=== PATIENT | male | born 1980 | race American Indian/Alaskan Native ===

== ENCOUNTER 2020-07-28 08:38 | Emergency (ER) | payer BC ==
[2020-07-28 08:43] VITALS: BP 164/91
--- NOTE | 2020-07-28 09:38 | Emergency Department Report ---
ED ENT HPI - General Chief complaint: Sore Throat Stated complaint: SORE THROAT, WEAKNESS Time Seen by Provider: 07/28/20 09:31 Source: patient Mode of arrival: Ambulatory Limitations: No Limitations - History of Present Illness Initial comments: 39-year-old -[place] male presents to the emergency room complaining of sore throat weakness and constipation since yesterday. Patient reports he has a decrease in appetite. Denies any fever chills no nausea no vomiting no abdominal pain no diarrhea. Last bowel movement was yesterday but felt like he did not evacuate completely. Patient reports he is taken [id number] Advil 400 mg and Goody powder yesterday. Patient reports he has a past medical history of hypertension and takes amlodipine and chlorthalidone. MD complaint: sore throat Onset/Timin -: days(s) Location: throat Severity: severe Severity scale (0 -10): 8 Quality: burning, stabbing, sharp Consistency: constant Improves with: none Worsens with: swallowing Associated Symptoms: pain with swallowing, sore throat - Related Data Previous Rx's Medication Instructions Recorded Last Taken Type Amoxicillin/K Clav Tab [Augmentin 1 tab PO Q12HR 7 Days #14 tab 07/28/20 Unknown Rx 875 mg] Allergies Allergy/AdvReac Type Severity Reaction Status Date / Time No Known Allergies Allergy Unverified 07/28/20 08:39 ED Dental HPI - General Chief complaint: Sore Throat Stated complaint: SORE THROAT, WEAKNESS Time Seen by Provider: 07/28/20 09:31 Source: patient Mode of arrival: Ambulatory Limitations: No Limitations - Related Data Previous Rx's Medication Instructions Recorded Last Taken Type Amoxicillin/K Clav Tab [Augmentin 1 tab PO Q12HR 7 Days #14 tab 07/28/20 Unknown Rx 875 mg] Allergies Allergy/AdvReac Type Severity Reaction Status Date / Time No Known Allergies Allergy Unverified 07/28/20 08:39 ED Review of Systems ROS: Stated complaint: SORE THROAT, WEAKNESS Other details as noted in HPI Comment: All other systems reviewed and negative ED Past Medical Hx - Past Medical History Hx Hypertension: Yes - Surgical History Past Surgical History?: No - Social History Smoking Status: Current Every Day Smoker - Medications Home Medications: Home Medications Medication Instructions Recorded Confirmed Last Taken Type Amoxicillin/K Clav Tab [Augmentin 1 tab PO Q12HR 7 Days #14 tab 07/28/20 Unknown Rx 875 mg] ED Physical Exam - General Limitations: No Limitations General appearance: alert, in no apparent distress - Head Head exam: Present: atraumatic, normocephalic - Eye Eye exam: Present: normal appearance - ENT ENT exam: Present: mucous membranes moist - Expanded ENT Exam Expanded Ear exam: Present: normal external inspection Throat exam: Positive: tonsillar erythema, tonsillomegaly, tonsillar exudate - Neck Neck exam: Present: full ROM, lymphadenopathy. Absent: tenderness - Neurological Exam Neurological exam: Present: alert, oriented X3, normal gait - Psychiatric Psychiatric exam: Present: normal affect, normal mood - Skin Skin exam: Present: warm, dry, intact, normal color. Absent: rash ED Course Vital Signs 07/28/20 08:42 Temperature 98.8 F Pulse Rate 85 Respiratory 20 Rate Blood Pressure 164/91 O2 Sat by Pulse 98 Oximetry ED Medical Decision Making - Medical Decision Making 39-year-old -[place] male presents to the emergency room complaining of sore throat weakness and constipation since yesterday. Patient reports he has a decrease in appetite. Denies any fever chills no nausea no vomiting no abdominal pain no diarrhea. Last bowel movement was yesterday but felt like he did not evacuate completely. Patient reports he is taken [id number] Advil 400 mg and Goody powder yesterday. Patient reports he has a past medical history of hypertension and takes amlodipine and chlorthalidone. Patient appears to have pharyngitis there is some exudate and tonsillar hypertrophy 3 with erythematous. Discussed with patient we will place him on Augmentin 875 mg p.o. twice daily. This should also help with his constipation also recommended MiraLAX [id number]. Critical care attestation.: If time is entered above; I have spent that time in minutes in the direct care of this critically ill patient, excluding procedure time. ED Disposition Clinical Impression: Pharyngitis Disposition: DC-01 TO HOME OR SELFCARE Is pt being admited?: No Does the pt Need Aspirin: No Condition: Stable Instructions: Pharyngitis (ED) Additional Instructions: Complete antibiotics as prescribed. You can take [id number] ibuprofen or Tylenol. For constipation you can take [id number] MiraLAX 1 capsule daily in any fluid. Follow-up with your primary care provider. Increase your fluid intake advance your diet as tolerated. Incorporate high-fiber foods Prescriptions: Amoxicillin/K Clav Tab [Augmentin 875 mg] 1 tab PO Q12HR 7 Days #14 tab Referrals: MARGARITA MERRITT MD [Other] - 3-5 Days Forms: Work/School Release Form(ED)
== END 2020-07-28 09:43 | disposition home or self-care (01) ==
LOC: ED 08:38
DX: J02.9 Acute pharyngitis, unspecified (principal); I10 Essential (primary) hypertension; F17.200 Nicotine dependence, unspecified, uncomplicated; Z79.2 Long term (current) use of antibiotics
CPT/HCPCS: 99282